=== PATIENT | female | born 1965 | race Caucasian/White ===

== ENCOUNTER 2016-04-27 15:57 | Emergency (ER) | payer BC ==
[2016-04-27 16:03] VITALS: BP 122/70; PULSE 79; TEMP 98; BMI 26.6
--- NOTE | 2016-04-27 16:28 | PDOC ---
History of Present Illness - General Chief Complaint: Pain Stated Complaint: RT FINGER INJURY Time Seen by Provider: 04/27/16 16:05 History Source: Patient Exam Limitations: No Limitations - History of Present Illness Initial Comments: 04/27/16 16:22 50 yr female with deformity right 4th digit PIP. Pt denies trauma noticed when she was sitting down that her finger was bent and is unable to extend. Mild tender on palpation. Pt last month had carpal tunnel repair to the right hand. Pt is left hand dominant. Past History - Past Medical History Allergies/Adverse Reactions: Allergies Allergy/AdvReac Type Severity Reaction Status Date / Time No Known Allergies Allergy Verified 04/27/16 16:03 Home Medications: Ambulatory Orders Bupropion HCl [Wellbutrin -] 100 mg PO BID 04/27/16 Escitalopram Oxalate [Lexapro -] 10 mg PO DAILY 04/27/16 Quetiapine Fumarate [Seroquel] 100 tab PO HS 04/27/16 Trazodone HCl 100 mg PO HS 04/27/16 Psychiatric Problems: Yes (DEPRESSION ANXIETY) - Psycho/Social/Smoking Cessation Hx Suicidal Ideation: No Smoking History: Never smoked Information on smoking cessation initiated: No *Physical Exam - Vital Signs Last Vital Signs Temp Pulse Resp BP Pulse Ox 98 F 79 18 122/70 97 04/27/16 16:00 04/27/16 16:00 04/27/16 16:00 04/27/16 16:00 04/27/16 16:00 - Physical Exam General Appearance: Yes: Nourished, Appropriately Dressed HEENT: positive: EOMI, LANA Extremity: positive: Normal Capillary Refill, Tender (dorsal surface of DIP joint, DIP held in flexion, no active extension however can passivley extend. skin intact, cap refill less than 2 seconds. ) Neurologic: positive: Fully Oriented, Alert, Normal Mood/Affect, Normal Response , Motor Strength 5/5 Procedures - Splinting Splint Location: Right: Finger (4th digit DIP splinted in hyperextension at 15 degrees with aluminum splint ) Pre-Proc Neuro Vasc Exam: normal Pre-Made Type: metal Splint Type: Yes: Finger Post-Proc Neuro Vasc Exam: normal ED Treatment Course - RADIOLOGY Radiology Studies Ordered: Category Date Time Status FINGER(S) RIGHT [RAD] Stat Radiology 04/27/16 16:19 Ordered Medical Decision Making - Medical Decision Making 04/27/16 16:25 cc: mallet finger right ring finger denies trauma no swelling skin intact, warm and dry nv intact passive extension noted, no active extension will xray to r/o fracture DIP joint splinted in hyperextension 10-15 degrees pt will follow with her hand surgeon, will call tomorrow. *DC/Admit/Observation/Transfer Diagnosis at time of Disposition: Mallet deformity of right ring finger - Discharge Dispostion Disposition: HOME Condition at time of disposition: Stable - Referrals Referrals: STAFF,NOT ON [Primary Care Provider] - - Patient Instructions Printed Discharge Instructions: DI for Mallet Finger Additional Instructions: keep splinted at all times until you see the hand surgeon this week call tomorrow or Thursday if closed tomorrow to make appointment tell them you have a Mallet Finger
== END 2016-04-27 16:35 | disposition home or self-care (01) ==
LOC: JERFT 15:57
PROC: 2W3JX1Z Immobilization of Right Finger using Splint (ICD-10-PCS; principal; 2016-04-27)
DX: M20.011 Mallet finger of right finger(s) (principal)
CPT/HCPCS: 73140-TC-RT; 99281-25